=== PATIENT | male | born 1990 | race Caucasian/White ===

== ENCOUNTER 2023-04-07 00:39 | Emergency (ER) | payer BC, SELFPAY ==
--- NOTE | 2023-04-07 00:41 | XRR_ITS ---
PROCEDURE INFORMATION: Exam: XR Chest Exam date and time: 04/07/2023 12:52 AM Age: 32 years old Clinical indication: Shortness of breath; Patient HX: C/O SOB TECHNIQUE: Imaging protocol: Radiologic exam of the chest. Views: 1 view. COMPARISON: No relevant prior studies available. FINDINGS: Lungs: Clear, symmetrically inflated lungs. Pleural spaces: No pleural effusion. No pneumothorax. Heart/Mediastinum: Borderline cardiomegaly with prominent left ventricular contour. Bones/joints: Age appropriate. XR/XR chest 1V portable [id number] IMPRESSION: Borderline cardiac enlargement with prominent left ventricle. Correlate with any findings chronic systemic hypertension. No visible aortic dilation. Clear lungs.
--- NOTE | 2023-04-07 00:41 | ECG_ITS ---
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 Measurements Intervals [place] Rate: 56 P: 23 AL: 166 QRS: 45 QRSD: 104 T: 18 QT: 406 QTc: 395 Interpretive Statements SINUS BRADYCARDIA WITH OCCASIONAL VENTRICULAR PREMATURE COMPLEXES INCOMPLETE RIGHT BUNDLE BRANCH BLOCK [90+ ms QRS DURATION, TERMINAL R IN V1/V2, 40+ ms S IN I/aVL/V4/V5/V6] No previous ECG available for comparison Electronically Signed On 04-07-2023 8:21:51 PILOT BOAT DECKHAND by David Meadows M.D. [id number]
[2023-04-07 00:45] VITALS: BP 193/115; PULSE 61; RESP 18; TEMP 36.7; O2SAT 100; BMI 32.6
[2023-04-07 00:56] LABS: Basophils # 0.1 10^3/uL (0.0-0.1); Basophils % 0.5 %; Eosinophils # 0.4 10^3/uL (0.0-0.8); Eosinophils % 4.1 %; Hematocrit 46.5 % (37-53); Mean Corpuscular HGB Conc 33.5 g/dL (30-55); Mean Corpuscular Hemoglobin 29.9 pg (27-33); Mean Corpuscular Volume 89.3 fl (82-101); Mean Platelet Volume 10.1 fL (7.4-10.4); Monocytes # 0.6 10^3/uL (0.2-0.9); Neutrophils # 4.29 10^3/uL (1.8-7.7); Neutrophils % 41.2 %; Nucleated Red Blood Cells % 0 %; Platelet Count 242 10^3/cmm (157-399); Red Blood Count 5.21 10^6/uL (3.85-5.65); Red Cell Distribution Width 12.6 % (12.1-15.1); White Blood Count 10.43 10^3/uL (3.29-11.43)
[2023-04-07 01:17] VITALS: BP 165/84; PULSE 56; RESP 19; O2SAT 98
[2023-04-07 01:30] VITALS: BP 165/84; PULSE 51; RESP 22; O2SAT 97
[2023-04-07 01:43] LABS: Troponin(5th) Baseline < 6 ng/L (0-15)
[2023-04-07 01:44] LABS: Alanine Aminotransferase 22 U/L (0-41); Albumin Level 4.5 g/dL (3.5-5.2); Alkaline Phosphatase 90 U/L (40-130); Aspartate Amino Transferase 17 U/L (0-40); Blood Urea Nitrogen 8 mg/dL (6-20); Calcium 9.2 mg/dL (8.5-10.5); Carbon Dioxide 26 mmol/L (22-29); Chloride 100 mmol/L (98-107); Creatine Phosphokinase 182 U/L (39-308); Globulin 2.3 g/dL (1.3-4.6); Glomerular Filtration Rate 96.6 mL/min (90-130); Glucose 89 mg/dL (65-115); NT Pro B Type Natriuretic Pept < 36 pg/mL (0-125); Osmolality Calculated 282 mOsm/kg (285-295); Sodium 137 mmol/L (136-145); Thyroid Stimulating Hormone 4.35 uIU/mL (0.27-4.20); Total Bilirubin 0.2 mg/dL (0.15-1.2); Total Protein 6.8 g/dL (6.6-8.7)
[2023-04-07 01:45] VITALS: BP 149/87; PULSE 54; RESP 20; O2SAT 97
[2023-04-07 01:45] LABS: Anion Gap 14.6 (5-19); Potassium 3.6 mmol/L (3.5-5.1)
[2023-04-07 01:53] LABS: Magnesium 1.9 mg/dL (1.7-2.3); Phosphorus 4.5 mg/dL (2.5-4.5)
--- NOTE | 2023-04-07 02:05 | ED_ITS ---
HPI - Chest Pain 2 General: Chief Complaint: Chest Pain Stated Complaint: Chest flutters sob Time Seen by Provider: 04/07/23 00:42 History of Present Illness: 32-year-old male with a history of smoki ng. He presents with palpitations and a feeling of pressure in his chest. He began to notice this more significantly around 3 PM. No shortness of breath. No fever. No significant cough. He states that his heart has a extra beat that he can feel. He has felt this before, but it feels more often this evening Associated symptoms: Reports palpitations; Deny abdominal pain, dyspnea, fever(s), nausea or vomiting Review of Systems 2 Const: Denies: fever(s) or chills ENMT: Denies: throat pain Card: Reports: chest pain and palpitations Resp: Denies: dyspnea GI: Denies: abdominal pain, nausea or vomiting Neuro: Denies: headache(s) Physical Exam 2 Const: COMMON NORMALS: no acute distress GENERAL APPEARANCE: cooperative; not ill appearing and not frail appearing HENMT: COMMON NORMALS: normocephalic, atraumatic and Normal external nose present HEAD & SCALP: normocephalic and atraumatic FACE & SINUS: normal facial exam and face symmetric NOSE: Normal external nose present Eye: COMMON NORMALS: Equal, round and reactive pupils present and EOMs intact bilaterally PUPIL: Yes Equal, round and reactive pupils present Neck/C-Spine: GENERAL: Yes trachea midline Chest: CHEST: Yes Symmetrical chest wall rise Resp: COMMON NORMALS: normal respiratory effort, No retractions, No use of accessory muscles and clear to auscultation bilaterally AUSCULTATION: clear to auscultation bilaterally Cardio: RATE: bradycardic (Minimally) RHYTHM: abnormal rhythm irregularly irregular GI: COMMON NORMALS: Normal to inspection, nondistended, normoactive bowel sounds present Extremity: COMMON NORMALS: no pedal edema Neuro: REAL COMA SCALE: document GCS findings Real coma scale eye opening: Spontaneous [place] coma scale verbal response: Orientated [place] coma scale motor response: Obey commands Real coma scale total score: 15 S ENSORY EXAM: Yes extremities (intact) Psych: COMMON NORMALS: speech normal SPEECH: Yes normal speech Skin: COMMON NORMALS: no rashes or lesions noted GENERAL SKIN EXAM: no rashes or lesions noted Course 2 Vital Signs: Vital signs: Vital Signs Temperature 98.1 F 02/11/24 00:45 Pulse Rate 54 L 04/07/23 01:45 Respiratory Rate 20 H 04/07/23 01:45 Blood Pressure 149/87 04/07/23 01:45 Pulse Oximetry 97 04/07/23 01:45 Oxygen Delivery Me thod Room Air 04/07/23 00:45 MDM - Chest Pain Medical Decision Making Vitals have been stable here. He is mildly hypertensive. Current blood pressure 144/104. Heart rate has been in the 50s and 60s. There are frequent PVCs noted. Apparent on EKG. EKG is otherwise not remarkable. Chest x-ray is clear. There is borderline cardiac enlargement. Because of this, outpatient ultrasound/echocardiogram will be ordered. The patient was counseled. He will monitor his blood pressure. CBC, CMP, not remarkable. Troponin and BNP are nondetectable. Lab Data 04/07/23 00:47 04/07/23 00:47 Radiology Impressions Chest X-Ray 04/07/23 00:41 IMPRESSION: Borderline cardiac enlargement with prominent left ventricle. Correlate with any findings chronic systemic hypertension. No visible aortic dilation. Clear lungs. Laboratory Results WBC 10.43 10^3/uL (3.29-11.43) 04/07/23 00:47 RBC 5.21 10^6/uL (3.85-5.65) 04/07/23 00:47 Hgb 15.60 g/dL (11.27-16.99) 04/07/23 00:47 Hct 46.5 % (37-53) 04/07/23 00:47 MCV 89.3 fl (82-101) 04/07/23 00:47 MCH 29.9 pg (27-33) 04/07/23 00:47 MCHC 33.5 g/dL (30-55) 04/07/23 00:47 RDW 12.6 % (12.1-15.1) 04/07/23 00:47 Plt Count 242 10^3/cmm (157-399) 04/07/23 00:47 MPV 10.1 fL (7.4-10.4) 04/07/23 00:47 Neut % (Auto) 41.2 % 04/07/23 00:47 Lymph % (Auto) 48.0 % 04/07/23 00:47 [place]ke % (Auto) 6.0 % 04/07/23 00:47 Eos % (Auto) 4.1 % 04/07/23 00:47 Baso % (Auto) 0.5 % 04/07/23 00:47 Neut # (Auto) 4.29 10^3/uL (1.8-7.7) 04/07/23 00:47 Lymph # (Auto) 5.0 10^3/uL (0.8-4.8) H 04/07/23 00:47 Parke # (Auto) 0.6 10^3/uL (0.2-0.9) 04/07/23 00:47 Eos # (Auto) 0.4 10^3/uL (0.0-0.8) 04/07/23 00:47 Baso # (Auto) 0.1 10^3/uL (0.0-0.1) 04/07/23 00:47 Nucleated RBC % (auto) 0 % 04/07/23 00:47 Nucleated RBCs # 0.0 /100WBC 04/07/23 00:47 Sodium 137 mmol/L (136-145) 04/07/23 00:47 Potassium 3.6 mmol/L (3.5-5.1) 04/07/23 00:47 Chloride 100 mmol/L (98-107) 04/07/23 00:47 Carbon Dioxide 26 mmol/L (22-29) 04/07/23 00:47 Anion Gap 14.6 (5-19) 04/07/23 00:47 BUN 8 mg/dL (6-20) 04/07/23 00:47 Creatinine 0.9 mg/dL (0.7-1.2) 04/07/23 00:47 GFR Calculation 96.6 mL/min (90-130) 04/07/23 00:47 Glucose 89 mg/dL (65-115) 04/07/23 00:47 Calculated Osmolality 282 mOsm/kg (285-295) L 04/07/23 00:47 Calcium 9.2 mg/dL (8.5-10.5) 04/07/23 00:47 Phosphorus 4.5 mg/dL (2.5-4.5) 04/07/23 00:47 Magnesium 1.9 mg/dL (1.7-2.3) 04/07/23 00:47 Total Bilirubin 0.2 mg/dL (0.15-1.2) 04/07/23 00:47 AST 17 U/L (0-40) 04/07/23 00:47 ALT 22 U/L (0-41) 04/07/23 00:47 Alkaline Phosphatase 90 U/L (40-130) 04/07/23 00:47 Creatine Kinase 182 U/L (39-308) 04/07/23 00:47 Troponin T Baseline < 6 ng/L (0-15) 04/07/23 00:47 NT-Pro-B Natriuret Pep < 36 pg/mL (0-125) 04/07/23 00:47 Total Protein 6.8 g/dL (6.6-8.7) 04/07/23 00:47 Albumin 4.5 g/dL (3.5-5.2) 04/07/23 00:47 Globulin 2.3 g/dL (1.3-4.6) 04/07/23 00:47 TSH 4.35 uIU/mL (0.27-4.20) H 04/07/23 00:47 All radiology interpretation(s) finalized by discharge Discharge Plan Discharge Patient Disposition: Home Clinical Impression: Heart palpitations, Beat, premature ventricular Condition: Stable Discharge Orders: Discharge ED (Routine); Ordered 04/07/23 Ordered By: Jaskaran De Referrals: Jarad Crowell MD [Primary Care Provider] - 1-3 days Patient Instructions: Heart Palpitations (ED), Premature Ventricular Contractions (ED), Opioid Safety, Pain Management Activity Restrictions/Additional Instructions: Case management has been asked to set you up with an outpatient echocardiogram. Follow-up with your doctor this week. Return for any worsening symptoms. Coding Level of Care Code ED Milking Machine Operator for Asael Hidalgo
[2023-04-07] MEDS: LORazepam 2 mg/mL INJ 10 mL MDV 0.5 MG IVP (02:07)
[2023-04-07 02:15] VITALS: BP 144/101; PULSE 56; RESP 22; TEMP 36.6; O2SAT 98
== END 2023-04-07 02:17 | disposition home or self-care (01) ==
PROVIDERS: Emergency Provider Emergency Medicine; PCP Family Medicine
DX: I49.3 Ventricular premature depolarization (principal)
CPT/HCPCS: 36415; 71045; 80053; 82550; 83735; 83880; 84100; 84443; 84484; 85025; 93005; 96374; 99285; J2060

== ENCOUNTER 2023-04-26 06:43 | Outpatient (CLI) | payer BC, SELFPAY ==
--- NOTE | 2023-04-26 07:15 | USCV_ITS ---
Zac Santiago Age: 32 Gender: M : 1990 Exam Date: 04/26/2023 06:11 Ordering Phys: Jaskaran De DO Technologist: MULUGETA [place] [facility] [place] Indication: PALPITATIONS BP: 132 / 81 HR: 54 Rhythm: Sinus Technical Quality: Adequate MEASUREMENTS (Male / Female) Normal Values 2D ECHO LV Diastolic Diameter PLAX 5.3 cm 4.2 - 5.9 / 3.9 - 5.3 cm IVS Diastolic Thickness 1.5 cm 0.6 - 1.0 / 0.6 - 0.9 cm IVS Systolic Thickness 2.5 cm LVPW Diastolic Thickness 2.1 cm 0.6 - 1.0 / 0.6 - 0.9 cm LVPW Systolic Thickness 2.9 cm LVOT Diameter 2.0 cm LV Ejection Fraction 2D Teich 69.5 % LV Ejection Fraction MOD 2C 63.8 % LV Ejection Fraction 2C AL 0.0 % LA Diameter 2.7 cm RA Systolic Volume 4C AL 38.2 ml RA Systolic Volume 4C MOD 34.7 ml Aorta at Sinotubular Diameter 2.3 cm IVC Diameter 1.4 cm M-MODE LA Ao Ratio MM 1.2 AV Cusp Separation MM 2.0 cm DOPPLER AV Peak Velocity 137.0 cm/s LVOT Peak Velocity 109.0 cm/s AV Area Cont Eq vti 3.1 cm squared AV Area Cont Eq pk 2.5 cm squared MV Peak Velocity 76.0 cm/s MV Area PHT 3.8 cm squared Mitral E to A Ratio 1.8 TR Peak Velocity 169.0 cm/s TR Peak Gradient 11.4 mmHg TR Mean Velocity 144.0 cm/s TR Mean Gradient 8.5 mmHg TR Velocity Time Integral 58.0 cm TV Peak E Velocity 56.0 cm/s Right Atrial Pressure 3.0 mmHg Pulmonary Artery Systolic Pressu 14.4 mmHg PV Peak Velocity 125.0 cm/s RV Ejection Time 0.4 s FINDINGS Left Ventricle Left ventricle is normal in size. LV systolic function is normal with EF of 55-60%. No regional wall motion abnormalities are seen. Diastolic function is normal Right Ventricle Normal in size and function Right Atrium Normal in size Left Atrium Normal in size Mitral Valve Structurally normal mitral valve. Trace mitral regurgitation. Aortic Valve Structurally normal aortic valve. No significant stenosis or regurgitation. Tricuspid Valve Trace tricuspid regurgitation. Pulmonary artery systolic pressure is normal Pulmonic Valve Trace pulmonic regurgitation. Pericardium Normal Aorta Normal in size IVC Appears to be normal CONCLUSIONS LV systolic function is normal with EF of 55-60% Diastolic function is normal Trace mitral regurgitation Trace tricuspid regurgitation Trace pulmonic regurgitation No comparison studies are available. Benoit Coker MD (Electronically Signed) Final Date: 26 April 2023 08:43 S
== END 2023-04-26 06:44 | disposition home or self-care (01) ==
LOC: RAD 06:43
PROVIDERS: PCP Family Medicine; Visit Provider Emergency Medicine
DX: I51.7 Cardiomegaly (principal); R00.2 Palpitations
CPT/HCPCS: 93306